=== PATIENT | male | born 1970 | race Caucasian/White ===

== ENCOUNTER 2018-05-16 08:01 | Inpatient (IN) | payer OTHER ==
[2018-05-16] MEDS ORDERED: LORazepam 2 MG/ML INJ IV STA (08:16)
[2018-05-16] MEDS ORDERED: SODIUM CHLORIDE 0.9% 1,000 ML IV ONE (08:28)
--- NOTE | 2018-05-16 08:28 | ED ---
General Adult HPI - General Stated complaint: ETOH withdrawal Time Seen by Provider: 05/16/18 08:01 Source: RN notes reviewed - History of Present Illness Initial comments: This is a 47 her old male who was originally seen at [facility]. They called to transfer the patient here for possible DVTs. Patient states he hasn't drank since yesterday and he was having some tingling to his face and also was having a difficult time standing so he called an ambulance. [facility] did a workup on him as well as a CAT scan of his brain all were negative except for a low magnesium which they started to replace prior to his arrival. Patient was also tachycardic at their facility. Patient received 2 mg of Ativan prior to leaving [facility]. Patient currently states he is feeling much better but still is shaking in his heart rate is still in excess 120. Patient denies any headache patient denies any numbness or weakness currently. Patient denies any chest pain or shortness of breath. Patient denies any recent fever chills. Patient denies any abdominal pain patient denies nausea vomiting diarrhea. Patient denies any injury or recent fall. - Related Data Home Medications Medication Instructions Recorded Confirmed Hydrochlorothiazide 25 mg PO HS 05/16/18 05/16/18 Lisinopril [Zestril] 20 mg PO DAILY 05/16/18 05/16/18 Multivitamins, Thera [Multivitamin 1 tab PO DAILY 05/16/18 05/16/18 (formulary)] Allergies Allergy/AdvReac Type Severity Reaction Status Date / Time No Known Allergies Allergy Verified 05/16/18 08:41 Review of Systems ROS Statement: Those systems with pertinent positive or pertinent negative responses have been documented in the HPI. ROS Other: All systems not noted in ROS Statement are negative. General Exam - General Exam Comments Initial Comments: GENERAL: Patient is well-developed and well-nourished. Patient is nontoxic and well- hydrated and is in mild distress. ENT: Neck is soft and supple. No significant lymphadenopathy is noted. Oropharynx is clear. Moist mucous membranes. Neck has full range of motion without eliciting any pain. EYES: The sclera were anicteric and conjunctiva were pink and moist. Extraocular movements were intact and pupils were equal round and reactive to light. Eyelids were unremarkable. PULMONARY: Unlabored respirations. Good breath sounds bilaterally. No audible rales rhonchi or wheezing was noted. CARDIOVASCULAR: Patient is tachycardic at about 130 beats a minute ABDOMEN: Soft and nontender with normal bowel sounds. No palpable organomegaly was noted. There is no palpable pulsatile mass. SKIN: Skin is clear with no lesions or rashes and otherwise unremarkable. NEUROLOGIC: Patient is alert and oriented x3. Cranial nerves II through XII are grossly intact. Motor and sensory are also intact. Normal speech, volume and content. Symmetrical smile. Patient is tremulous MUSCULOSKELETAL: Normal extremities with adequate strength and full range of motion. No lower extremity swelling or edema. No calf tenderness. LYMPHATICS: No significant lymphadenopathy is noted PSYCHIATRIC: Normal psychiatric evaluation. Course Vital Signs 05/16/18 05/16/18 05/16/18 08:23 08:48 09:39 Temperature 98.4 F Pulse Rate 136 H 125 H Respiratory 22 Rate Blood Pressure 171/100 152/84 O2 Sat by Pulse 98 Oximetry 05/16/18 10:01 Temperature Pulse Rate 121 H Respiratory 20 Rate Blood Pressure 138/78 O2 Sat by Pulse 98 Oximetry Medical Decision Making - Medical Decision Making EKG shows sinus tachycardia at 105 bpm VT interval 166 QRS is 84 QT interval 340 QTC is 449. EKG shows no ST segment elevation or depression or T wave abnormalities are noted. - Lab Data Result diagrams: 05/16/18 08:10 05/16/18 08:10 Lab Results 05/16/18 05/16/18 05/16/18 Range/Units 08:10 08:10 08:10 WBC (3.8-10.6) k/uL RBC (4.30-5.90) m/uL Hgb (13.0-17.5) gm/dL Hct (39.0-53.0) % MCV (80.0-100.0) fL MCH (25.0-35.0) pg MCHC (31.0-37.0) g/dL RDW (11.5-15.5) % Plt Count (150-450) k/uL Neutrophils % % Lymphocytes % % Monocytes % % Eosinophils % % Basophils % % Neutrophils # (1.3-7.7) k/uL Lymphocytes # (1.0-4.8) k/uL Monocytes # (0-1.0) k/uL Eosinophils # (0-0.7) k/uL Basophils # (0-0.2) k/uL Macrocytosis Sodium 134 L (137-145) mmol/L Potassium 4.0 (3.5-5.1) mmol/L Chloride 99 (98-107) mmol/L Carbon Dioxide 21 L (22-30) mmol/L Anion Gap 14 mmol/L BUN 17 (9-20) mg/dL Creatinine 0.73 (0.66-1.25) mg/dL Est GFR (CKD-EPI)AfAm >90 (>60 ml/min/1.73 sqM) Est GFR (CKD-EPI)NonAf >90 (>60 ml/min/1.73 sqM) Glucose 129 H (74-99) mg/dL Plasma Lactic Acid Bill 3.9 H* (0.7-2.0) mmol/L Calcium 9.0 (8.4-10.2) mg/dL Magnesium 1.7 (1.6-2.3) mg/dL Total Bilirubin 1.0 (0.2-1.3) mg/dL AST 119 H (17-59) U/L ALT 94 H (21-72) U/L Alkaline Phosphatase 129 H (38-126) U/L Troponin I 0.190 H* (0.000-0.034) ng/mL Total Protein 6.7 (6.3-8.2) g/dL Albumin 3.8 (3.5-5.0) g/dL 05/16/18 Range/Units 08:10 WBC 6.5 (3.8-10.6) k/uL RBC 3.66 L (4.30-5.90) m/uL Hgb 13.0 (13.0-17.5) gm/dL Hct 38.9 L (39.0-53.0) % MCV 106.2 H (80.0-100.0) fL MCH 35.4 H (25.0-35.0) pg MCHC 33.3 (31.0-37.0) g/dL RDW 13.1 (11.5-15.5) % Plt Count 131 L (150-450) k/uL Neutrophils % 76 % Lymphocytes % 11 % Monocytes % 9 % Eosinophils % 1 % Basophils % 1 % Neutrophils # 4.9 (1.3-7.7) k/uL Lymphocytes # 0.7 L (1.0-4.8) k/uL Monocytes # 0.6 (0-1.0) k/uL Eosinophils # 0.1 (0-0.7) k/uL Basophils # 0.0 (0-0.2) k/uL Macrocytosis Moderate Sodium (137-145) mmol/L Potassium (3.5-5.1) mmol/L Chloride (98-107) mmol/L Carbon Dioxide (22-30) mmol/L Anion Gap mmol/L BUN (9-20) mg/dL Creatinine (0.66-1.25) mg/dL Est GFR (CKD-EPI)AfAm (>60 ml/min/1.73 sqM) Est GFR (CKD-EPI)NonAf (>60 ml/min/1.73 sqM) Glucose (74-99) mg/dL Plasma Lactic Acid Bill (0.7-2.0) mmol/L Calcium (8.4-10.2) mg/dL Magnesium (1.6-2.3) mg/dL Total Bilirubin (0.2-1.3) mg/dL AST (17-59) U/L ALT (21-72) U/L Alkaline Phosphatase (38-126) U/L Troponin I (0.000-0.034) ng/mL Total Protein (6.3-8.2) g/dL Albumin (3.5-5.0) g/dL Disposition Clinical Impression: Alcohol withdrawal syndrome Disposition: ADMITTED IP TO THIS [facility] Time of Disposition: 10:13
[2018-05-16] MEDS ORDERED: THIAMINE 100 MG/ML 2 ML VIAL IM STA (08:29)
[2018-05-16] MEDS ORDERED: LORazepam 2 MG/ML INJ IV PRN (08:29)
[2018-05-16] MEDS: LORazepam 2 MG/ML INJ IV PRN ×5 (08:38→20:19)
[2018-05-16 08:43] LABS: Basophils % (A) 1 %; Eosinophils # (A) 0.1 k/uL (0-0.7); Eosinophils % (A) 1 %; HCT 38.9 % (39.0-53.0); Lymphocytes # (A) 0.7 k/uL (1.0-4.8); Lymphocytes % (A) 11 %; MCH 35.4 pg (25.0-35.0); MCHC 33.3 g/dL (31.0-37.0); MCV 106.2 fL (80.0-100.0); Macrocytosis Moderate; Mean Platelet Volume 7.1; Monocytes # (A) 0.6 k/uL (0-1.0); Monocytes % (A) 9 %; Neutrophils # (A) 4.9 k/uL (1.3-7.7); Neutrophils % (A) 76 %; Platelet Count 131 k/uL (150-450); RBC 3.66 m/uL (4.30-5.90); RDW 13.1 % (11.5-15.5); WBC 6.5 k/uL (3.8-10.6)
[2018-05-16] MEDS ORDERED: SODIUM CHLORIDE 0.9% 1,000 ML with MVI, ADULT NO.4 WITH VIT K 10 ML, THIAMINE 100 MG, F... IV ONE ×4 (08:45)
[2018-05-16 08:51] LABS: ALT 94 U/L (21-72); AST 119 U/L (17-59); Albumin 3.8 g/dL (3.5-5.0); Alkaline Phosphatase 129 U/L (38-126); Anion Gap 14 mmol/L; Blood Urea Nitrogen 17 mg/dL (9-20); Carbon Dioxide 21 mmol/L (22-30); Chloride 99 mmol/L (98-107); Glucose 129 mg/dL (74-99); Magnesium 1.7 mg/dL (1.6-2.3); Sodium 134 mmol/L (137-145); Total Protein 6.7 g/dL (6.3-8.2)
[2018-05-16] MEDS: NICOTINE 21MG/24HR PATCH TRANSDERM SCH (13:18)
--- NOTE | 2018-05-16 14:23 | P.HPIM ---
History of Present Illness this is a pleasant 47 years old male with past medical history of alcohol abuse , hypertension, hyperlipidemia. He follow-up with Dr. Bojorquez. he was a transfer from [facility] for alcohol withdrawal. Patient has history of alcohol abuse and he went into alcohol withdrawal last time about 9 months ago however he denies history of withdrawal seizure. 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 Patient also complains from chronic loses stool since August 2017, however over the last month and become more formed after a Telfa twice per day. Denies any blood in his stool. Patient also denies chest pain or dyspnea. No dizziness. currently no headache. No weakness in any part of his body for example limbs. No abnormal sensation or numbness, however at says at times he feels numbness in both feet and hands left more than right but not currently. No difficulty swallowing or blurred vision, patient examined for diplopia and was negative. He is smoker about 1 pack per day, consult and agrees to quit and is nicotine patch, compared to drinking around between appointment and 1 L every day. However he denies illicit to track use. Anteverted [facility] his labs showed sodium 132, creatinine 0.8, potassium 4.2, low magnesium 1.1, AST elevated at 110, ALT 84, lactic acid 4.1, lipase 98 Review of Systems CONSTITUTIONAL: No fever, no malaise, no fatigue. HEENT: No recent visual problems or hearing problems. Denied any sore throat. CARDIOVASCULAR: No orthopnea, PND, no palpitations, no syncope. PULMONARY: No shortness of breath, no cough, no hemoptysis. GASTROINTESTINAL: No diarrhea, no nausea, no vomiting, no abdominal pain. Normoactive bowel sounds. NEUROLOGICAL: No headaches, no weakness, no numbness. HEMATOLOGICAL: Denies any bleeding or petechiae. GENITOURINARY: Denies any burning micturition, frequency, or urgency. MUSCULOSKELETAL/RHEUMATOLOGICAL: Denies any joint pain, swelling, or any muscle pain. ENDOCRINE: Denies any polyuria or polydipsia. Past Medical History Past Medical History: Hyperlipidemia, Hypertension Additional Past Medical History / Comment(s): Alcohol Abuse, dental problems History of Any Multi-Drug Resistant Organisms: None Reported Past Surgical History: Hernia Repair Additional Past Surgical History / Comment(s): L inguinal hernia repair as infant. Past Anesthesia/Blood Transfusion Reactions: No Reported Reaction Smoking Status: Current every day smoker - Past Family History Father Family Medical History: Cancer Additional Family Medical History / Comment(s): Father recently diagnosed with throat cancer and will go to [place] [facility] for radiation starting 05/17/18. He is a nonsmoker. He is 72 yrs old. Mother Family Medical History: No Reported History Additional Family Medical History / Comment(s): Mother is healthy and 70yrs old. Medications and Allergies Home Medications Medication Instructions Recorded Confirmed Type Lisinopril [Zestril] 20 mg PO DAILY 05/16/18 05/16/18 History Multivitamins, Thera [Multivitamin 1 tab PO DAILY 05/16/18 05/16/18 History (formulary)] RX: Hydrochlorothiazide 25 mg PO HS 05/16/18 05/16/18 History Allergies Allergy/AdvReac Type Severity Reaction Status Date / Time No Known Allergies Allergy Verified 05/16/18 08:41 Physical Exam Vitals: Vital Signs Temp Pulse Pulse Resp BP BP Pulse Ox 05/16/18 10:40 112 H 05/16/18 10:38 98 F 112 H 16 142/76 97 05/16/18 10:01 121 H 20 138/78 98 05/16/18 09:39 125 H 05/16/18 08:48 152/84 05/16/18 08:23 98.4 F 136 H 22 171/100 98 Intake and Output 05/15/18 05/16/18 05/16/18 22:59 06:59 14:59 Intake Total 240 Balance 240 Intake: Oral 240 Other: # Voids 0 Weight 72 kg GENERAL: The patient is alert and oriented x3, not in any acute distress. Well developed, well nourished. -HEENT: Pupils are round and equally reacting to light. EOMI. No scleral icterus. No conjunctival pallor. Normocephalic, atraumatic. No pharyngeal erythema. No thyromegaly. dry mucous membranes CARDIOVASCULAR: S1 and S2 present. No murmurs, rubs, or gallops. PULMONARY: Chest is clear to auscultation, no wheezing or crackles. ABDOMEN: Soft, nontender, nondistended, normoactive bowel sounds. No palpable organomegaly. MUSCULOSKELETAL: No joint swelling or deformity. -EXTREMITIES: No cyanosis, clubbing, or pedal edema. bilateral hand tremor NEUROLOGICAL: Gross neurological examination did not reveal any focal deficits. SKIN: No rashes. Results CBC & Chem 7: 05/16/18 08:10 05/16/18 08:10 Labs: Abnormal Lab Results - Last 24 Hours (Table) 05/16/18 05/16/18 05/16/18 Range/Units 08:10 08:10 08:10 RBC (4.30-5.90) m/uL Hct (39.0-53.0) % MCV (80.0-100.0) fL MCH (25.0-35.0) pg Plt Count (150-450) k/uL Lymphocytes # (1.0-4.8) k/uL Sodium 134 L (137-145) mmol/L Carbon Dioxide 21 L (22-30) mmol/L Glucose 129 H (74-99) mg/dL Plasma Lactic Acid Bill 3.9 H* (0.7-2.0) mmol/L AST 119 H (17-59) U/L ALT 94 H (21-72) U/L Alkaline Phosphatase 129 H (38-126) U/L Troponin I 0.190 H* (0.000-0.034) ng/mL 05/16/18 Range/Units 08:10 RBC 3.66 L (4.30-5.90) m/uL Hct 38.9 L (39.0-53.0) % MCV 106.2 H (80.0-100.0) fL MCH 35.4 H (25.0-35.0) pg Plt Count 131 L (150-450) k/uL Lymphocytes # 0.7 L (1.0-4.8) k/uL Sodium (137-145) mmol/L Carbon Dioxide (22-30) mmol/L Glucose (74-99) mg/dL Plasma Lactic Acid Bill (0.7-2.0) mmol/L AST (17-59) U/L ALT (21-72) U/L Alkaline Phosphatase (38-126) U/L Troponin I (0.000-0.034) ng/mL Thrombosis Risk Factor Assmnt - Choose All That Apply Any of the Below Risk Factors Present?: Yes Each Factor Represents 1 point: Age 41-60 years Other Risk Factors: Yes Other congenital or acquired thrombophilia - If yes, enter type in comment: No Thrombosis Risk Factor Assessment Total Risk Factor Score: 1 Thrombosis Risk Factor Assessment Level: Low Risk Assessment and Plan Assessment: alcohol withdrawal, monitor for delirium tremens Alcohol abuse Elevated troponins dehydration Current smoker elevated lactic acid Electrolyte abnormalities Hypertension, essential Plan: this is a pleasant 48 years old male who presents because of. We'll withdrawal. Patient started on banana bag, IV hydration. Continue with CIWA protocol.monitor lytes and vitals. resume home medication. Hold diuretic. Serial troponins, EKG shows sinus tachycardia. Call cardiology consult for evaluation.echocardiogram.start patient on aspirin, Baby does. follow-up lactic acid and electrolytes and vitals. Telemetry. Psychiatric evaluation. GI and DVT prophylaxis. Further recommendation is based on the clinical course of the patient DVT Prophylaxis: Subcutaneous heparin GI prophylaxis: Pepcid PT/OT: Pending Prognosis is guarded discussed with staff
[2018-05-16] MEDS: HEPARIN SODIUM,PORCINE 5,000 UNIT/ML 1 ML VIAL SQ SCH ×2 (14:42→20:20)
[2018-05-16] MEDS: FAMOTIDINE 20 MG/2 ML VIAL IV SCH ×2 (14:42→20:20)
[2018-05-16] MEDS: ASPIRIN 81 MG PO SCH (14:43)
[2018-05-16 15:47] LABS: Anion Gap 5 mmol/L; Blood Urea Nitrogen 17 mg/dL (9-20); Calcium 8.6 mg/dL (8.4-10.2); Carbon Dioxide 26 mmol/L (22-30); Chloride 103 mmol/L (98-107); Glucose 123 mg/dL (74-99); Magnesium 1.9 mg/dL (1.6-2.3); Potassium 3.9 mmol/L (3.5-5.1); Sodium 134 mmol/L (137-145)
[2018-05-16] MEDS: 1: MVI, ADULT NO.4 WITH VIT K 10 ML, THIAMINE 100 MG, FOLIC ACID 1 MG in SODIUM CHLORIDE IV SCH ×4 (15:51)
[2018-05-16] MEDS: THIAMINE 100 MG TAB PO SCH (17:19)
--- NOTE | 2018-05-16 18:08 | CONS ---
CONSULTATION DATE OF SERVICE: 05/16/2018. CHIEF COMPLAINT: Elevated troponin. HISTORY: Florentino is a 47-year-old gentleman with history of EtOH abuse, who was going to large alcohol withdrawal at home, came in because he felt somewhat dizzy and fell down onto the floor. He initially presented to [facility], from where he had been transferred to [facility]. There is no history of seizures. There is no history of chest pain, shortness of breath, paroxysmal nocturnal dyspnea or orthopnea. PAST MEDICAL HISTORY: Significant for hypertension. CURRENT MEDICATIONS: 1. Zestril 20 daily. 2. Hydrochlorothiazide 25 daily. FAMILY HISTORY: Negative for premature coronary artery disease. SOCIAL HISTORY: Negative for smoking or history of drug abuse. Significant for EtOH abuse. REVIEW OF SYSTEMS: HEENT: Significant for episodes of blurred vision and headache. CARDIAC: As described above. RESPIRATORY: Negative. GI: Negative. : Negative. MUSCULOSKELETAL: Negative. ENDOCRINE: Negative. ONCOLOGICAL: Negative. DERM: Negative. CONSTITUTIONAL: Negative. PSYCH: Significant for alcohol abuse and alcohol withdrawal. EXAM: He appears comfortable at rest. VITAL SIGNS: Heart rate is 105 beats per minute, blood pressure is 130/80, respiratory rate is 18, O2 sat is 97% on room air. NECK: There is no jugular venous distention. Carotid upstroke is normal. There is no bruit. CHEST: Chest exam reveals good air entry bilaterally. HEART: First and second heart sounds. No gallop. No murmur. No rub. ABDOMEN: Soft, nontender. EXTREMITIES: Did not reveal any edema. Peripheral pulses are felt. LABS: Lactic acid was initially elevated, subsequently it came back down to 1.2, creatinine is 0.89. Hemoglobin is normal. Troponin mildly elevated at 0.1 and 0.3. EKG shows sinus tachycardia. ASSESSMENT: 1. Troponin elevation. 2. EtOH abuse with alcohol withdrawal. PLAN: The exact etiology for troponin elevation is unclear. The patient's clinical presentation is not consistent with a diagnosis of acute myocardial ischemia. It could be related to alcohol withdrawal. I will obtain a 2D echo to assess LV function and wall motion. If that appears normal. He does not require further workup at this time. We may consider an outpatient stress test at a later date. MMODL / IJN: [id number] /
--- NOTE | 2018-05-16 18:25 | ECHOF ---
Referral Reason:Rule out heart disease MEASUREMENTS -------- HEIGHT: 172.7 cm WEIGHT: 71.7 kg BP: 142/76 RVIDd: 2.7 cm (< 3.3) IVSd: 0.9 cm (0.6 - 1.1) LVIDd: 5.2 cm (3.9 - 5.3) LVPWd: 1.1 cm (0.6 - 1.1) IVSs: 1.6 cm LVIDs: 3.8 cm LVPWs: 1.6 cm LA Diam: 3.6 cm (2.7 - 3.8) LAESV Index (A-L): 26.82 ml/m Ao Diam: 3.0 cm (2.0 - 3.7) AV Cusp: 2.5 cm (1.5 - 2.6) EPSS: 1.0 cm MV E Joe: 1.16 m/s MV DecT: 81 ms MV A Joe: 1.06 m/s MV E/A Ratio: 1.10 RAP: 5.00 mmHg RVSP: 37.19 mmHg MV EF SLOPE: 138.45 mm/s (70 - 150) MV EXCURSION: 1.72 cm (> 18.000) FINDINGS -------- Sinus rhythm. Resting tachycardia (HR>100bpm). This was a technically good study. The left ventricular size is normal. There is borderline concentric left ventricular hypertrophy. Overall left ventricular systolic function is low-normal with, an EF between 50 - 55 %. The right ventricle is normal in size. Normal LA size by volume 22+/-6 ml/m2. The right atrium is normal in size. The aortic valve is trileaflet and appears structurally normal. The mitral valve leaflets are mildly thickened. Severe mitral regurgitation is present. Mild tricuspid regurgitation present. There is mild pulmonary hypertension. The right ventricular systolic pressure, as measured by Doppler, is 37.19mmHg. Trace/mild (physiologic) pulmonic regurgitation. The aortic root size is normal. Normal inferior vena cava with normal inspiratory collapse consistent with estimated right atrial pre ssure of 5 mmHg. There is no pericardial effusion. CONCLUSIONS -------- 1. Sinus rhythm. 2. Resting tachycardia (HR>100bpm). 3. This was a technically good study. 4. The left ventricular size is normal. 5. There is borderline concentric left ventricular hypertrophy. 6. Overall left ventricular systolic function is low-normal with, an EF between 50 - 55 %. 7. The right ventricle is normal in size. 8. Normal LA size by volume 22+/-6 ml/m2. 9. The aortic valve is trileaflet and appears structurally normal. 10. The mitral valve leaflets are mildly thickened. 11. Severe mitral regurgitation is present. 12. Mild tricuspid regurgitation present. 13. There is mild pulmonary hypertension. 14. Trace/mild (physiologic) pulmonic regurgitation. 15. The aortic root size is normal. 16. Normal inferior vena cava with normal inspiratory collapse consistent with estimated right atrial pressure of 5 mmHg. 17. There is no pericardial effusion. TANDEM OPERATOR: ARIANNA Vázquez
[2018-05-17] MEDS: LORazepam 2 MG/ML INJ IV PRN ×2 (00:36→20:10)
[2018-05-17] MEDS: 1: MVI, ADULT NO.4 WITH VIT K 10 ML, THIAMINE 100 MG, FOLIC ACID 1 MG in SODIUM CHLORIDE IV SCH ×12 (01:46→21:53)
[2018-05-17 07:31] LABS: Basophils % (A) 1 %; Eosinophils # (A) 0.1 k/uL (0-0.7); Eosinophils % (A) 3 %; HCT 37.8 % (39.0-53.0); HGB 12.4 gm/dL (13.0-17.5); Lymphocytes # (A) 0.9 k/uL (1.0-4.8); Lymphocytes % (A) 22 %; MCH 34.9 pg (25.0-35.0); MCHC 32.8 g/dL (31.0-37.0); MCV 106.5 fL (80.0-100.0); Macrocytosis Moderate; Mean Platelet Volume 8.1; Monocytes # (A) 0.3 k/uL (0-1.0); Monocytes % (A) 7 %; Neutrophils # (A) 2.7 k/uL (1.3-7.7); Neutrophils % (A) 65 %; Platelet Count 122 k/uL (150-450); RBC 3.55 m/uL (4.30-5.90); RDW 12.5 % (11.5-15.5); WBC 4.1 k/uL (3.8-10.6)
[2018-05-17 07:44] LABS: ALT 81 U/L (21-72); AST 109 U/L (17-59); Albumin 3.5 g/dL (3.5-5.0); Alkaline Phosphatase 118 U/L (38-126); Anion Gap 9 mmol/L; Blood Urea Nitrogen 11 mg/dL (9-20); Calcium 9.1 mg/dL (8.4-10.2); Carbon Dioxide 24 mmol/L (22-30); Chloride 105 mmol/L (98-107); Glucose 97 mg/dL (74-99); Potassium 3.9 mmol/L (3.5-5.1); Sodium 138 mmol/L (137-145); Total Bilirubin 0.9 mg/dL (0.2-1.3); Total Protein 6.1 g/dL (6.3-8.2)
[2018-05-17] MEDS: NICOTINE 21MG/24HR PATCH TRANSDERM SCH (09:13)
[2018-05-17] MEDS: HEPARIN SODIUM,PORCINE 5,000 UNIT/ML 1 ML VIAL SQ SCH ×2 (09:13→20:11)
[2018-05-17] MEDS: ASPIRIN 81 MG PO SCH (09:13)
[2018-05-17] MEDS: FAMOTIDINE 20 MG/2 ML VIAL IV SCH (09:18)
[2018-05-17 10:36] VITALS: BMI 24.3
--- NOTE | 2018-05-17 12:24 | P.PN ---
Subjective Progress Note Date: 05/17/18 This is a 47-year-old gentleman with history of EtOH abuse presented to the hospital after experiencing a fall at home. No history of seizures, patient denies any chest pain, shortness of breath, he does have history of hypertension. Patient was seen in consultation yesterday by Dr. Marquez, appears to be going through some DVTs and is quite shaky. Having significant tremors, he states that it makes him unable to walk appropriately because she shaking so bad. Etiology was initially consulted to see the patient because of abnormal troponins. Echocardiogram with Doppler study was performed which revealed a normal left ventricular systolic function. Troponin 0.19, 0.3, 0.3. Objective - Vital Signs Vital signs: Vital Signs Temp 97.9 F 05/17/18 08:00 Pulse 108 H 05/17/18 08:00 Resp 18 05/17/18 08:00 BP 150/101 05/17/18 08:00 Pulse Ox 100 05/17/18 08:00 Intake & Output 05/16/18 05/17/18 05/17/18 18:59 06:59 18:59 Intake Total 480 720 240 Output Total 400 1000 Balance 480 320 -760 Weight 72 kg 72.5 kg 72.5 kg Intake: Intake, IV Titration 600 Amount Mvi, Adult No.4 with Vit 200 K 10 ml Thiamine 100 mg Folic Acid 1 mg In Sodium Chloride 0.9% 1,000 ml @ 100 mls/hr IV .BY DURATION LALITA Rx#: [id number] Sodium Chloride 0.9% 1, 400 000 ml @ 100 mls/hr IV . BY DURATION LALITA Rx#: [id number] Oral 480 120 240 Output: Urine 400 1000 Other: # Voids 1 1 # Bowel Movements 0 - Exam PHYSICAL EXAMINATION: GENERAL: 47-year-old gentleman in no acute distress at the time of my examination HEENT: Head is atraumatic, normocephalic. Pupils equal, round. Sclera anicteric. Conjunctiva are clear. Mucous membranes of the mouth are moist. Neck is supple. There is no elevated jugular venous pressure. No carotid bruit is heard. HEART EXAMINATION: Heart S1, S2 normal. No murmur or gallop heard. CHEST EXAMINATION: Lungs are clear to auscultation and precussion. No chest wall tenderness is noted on palpation or with deep breathing. ABDOMEN: Soft, nontender. Bowel sounds are heard. No organomegaly noted. EXTREMITIES: 2+ peripheral pulses with no evidence of peripheral edema and no calf tenderness noted. NEUROLOGIC patient is awake, alert and oriented X3, he is experiencing tremors. . - Labs CBC & Chem 7: 05/17/18 07:01 05/17/18 07:01 Labs: Abnormal Lab Results - Last 24 Hours (Table) 05/16/18 05/16/18 05/16/18 Range/Units 14:10 15:19 20:13 RBC (4.30-5.90) m/uL Hgb (13.0-17.5) gm/dL Hct (39.0-53.0) % MCV (80.0-100.0) fL Plt Count (150-450) k/uL Lymphocytes # (1.0-4.8) k/uL Sodium 134 L (137-145) mmol/L Glucose 123 H (74-99) mg/dL AST (17-59) U/L ALT (21-72) U/L Troponin I 0.341 H* 0.320 H* (0.000-0.034) ng/mL Total Protein (6.3-8.2) g/dL 05/17/18 05/17/18 Range/Units 07:01 07:01 RBC 3.55 L (4.30-5.90) m/uL Hgb 12.4 L (13.0-17.5) gm/dL Hct 37.8 L (39.0-53.0) % MCV 106.5 H (80.0-100.0) fL Plt Count 122 L (150-450) k/uL Lymphocytes # 0.9 L (1.0-4.8) k/uL Sodium (137-145) mmol/L Glucose (74-99) mg/dL AST 109 H (17-59) U/L ALT 81 H (21-72) U/L Troponin I (0.000-0.034) ng/mL Total Protein 6.1 L (6.3-8.2) g/dL Assessment and Plan Plan: Assessment and plan #1 alcohol withdrawal with significant tremors this morning #2 history of alcohol abuse #3 nicotine dependence #4 abnormal lactic acid #5 hypertension #6 abnormal troponins, likely secondary to EtOH withdrawal, echo shows normal left ventricular systolic function. From cardiology's perspective, we'll follow this patient along with you now on an as-needed basis only, we will make an outpatient appointment in the office and schedule outpatient stress testing down the road. DNP note has been reviewed, I agree with a documented findings and plan of care. Patient was seen and examined.
[2018-05-17] MEDS: THIAMINE 100 MG TAB PO SCH ×2 (12:40→17:39)
[2018-05-17] MEDS: LISINOPRIL 20 MG TAB PO SCH (12:40)
--- NOTE | 2018-05-17 14:37 | P.PN ---
Subjective Progress Note Date: 05/17/18 Progress note being dictated for Dr. Cabrales Interval history:this is a pleasant 47 years old male with past medical history of alcohol abuse, hypertension, hyperlipidemia. He follow-up with Dr. Bojorquez. he was a transfer from [facility] for alcohol withdrawal. Patient has history of alcohol abuse and he went into alcohol withdrawal last time about 9 months ago however he denies history of withdrawal seizure. 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 Patient also complains from chronic loses stool since August 2017 , however over the last month and become more formed after a Telfa twice per day. Denies any blood in his stool. Patient also denies chest pain or dyspnea. No dizziness. currently no headache. No weakness in any part of his body for example limbs. No abnormal sensation or numbness, however at says at times he feels numbness in both feet and hands left more than right but not currently. No difficulty swallowing or blurred vision, patient examined for diplopia and was negative. He is smoker about 1 pack per day, consult and agrees to quit and is nicotine patch, compared to drinking around between appointment and 1 L every day. However he denies illicit to track use. Anteverted [facility] his labs showed sodium 132, creatinine 0.8, potassium 4.2, low magnesium 1.1, AST elevated at 110, ALT 84, lactic acid 4.1, lipase 98 Review of Systems CONSTITUTIONAL: No fever, no malaise, no fatigue. HEENT: No recent visual problems or hearing problems. Denied any sore throat. CARDIOVASCULAR: No orthopnea, PND, no palpitations, no syncope. PULMONARY: No shortness of breath, no cough, no hemoptysis. GASTROINTESTINAL: No diarrhea, no nausea, no vomiting, no abdominal pain. Normoactive bowel sounds. NEUROLOGICAL: No headaches, no weakness, no numbness. HEMATOLOGICAL: Denies any bleeding or petechiae. GENITOURINARY: Denies any burning micturition, frequency, or urgency. MUSCULOSKELETAL/RHEUMATOLOGICAL: Denies any joint pain, swelling, or any muscle pain. ENDOCRINE: Denies any polyuria or polydipsia. 05/17/2018 maintained on CIWA protocol, currently scoring a "9" on CIWa scale. Required a total of 2 mg of Ativan overnight. Shaky, improving. Ambulating without difficulty. Good diet intake with no nausea or vomiting. Denies chest pain, palpitations or increasing shortness of breath. Denies focal deficits, lightheadedness or dizziness. LFTs improving. Troponins 0.341, 0.320, evaluated by cardiology. Echo reporting normal LV function. Objective - Vital Signs Vital signs: Vital Signs Temp 97.9 F 05/17/18 08:00 Pulse 108 H 05/17/18 08:00 Resp 18 05/17/18 08:00 BP 150/101 05/17/18 08:00 Pulse Ox 100 05/17/18 08:00 Intake & Output 05/16/18 05/17/18 05/17/18 18:59 06:59 18:59 Intake Total 480 720 240 Output Total 400 1000 Balance 480 320 -760 Weight 72 kg 72.5 kg 72.5 kg Intake: Intake, IV Titration 600 Amount Mvi, Adult No.4 with Vit 200 K 10 ml Thiamine 100 mg Folic Acid 1 mg In Sodium Chloride 0.9% 1,000 ml @ 100 mls/hr IV .BY DURATION LALITA Rx#: [id number] Sodium Chloride 0.9% 1, 400 000 ml @ 100 mls/hr IV . BY DURATION LALITA Rx#: [id number] Oral 480 120 240 Output: Urine 400 1000 Other: # Voids 1 1 # Bowel Movements 0 - Exam GENERAL: The patient is alert and oriented x3, not in any acute distress. Well developed, well nourished. -HEENT: Pupils are round and equally reacting to light. EOMI. No scleral icterus. No conjunctival pallor. Normocephalic, atraumatic. No pharyngeal erythema. No thyromegaly. Oral mucous membranes moist CARDIOVASCULAR: S1 and S2 present. No murmurs, rubs, or gallops. PULMONARY: Chest is clear to auscultation, no wheezing or crackles. ABDOMEN: Soft, nontender, nondistended, normoactive bowel sounds. No palpable organomegaly. MUSCULOSKELETAL: No joint swelling or deformity. -EXTREMITIES: No cyanosis, clubbing, or pedal edema. bilateral hand tremor NEUROLOGICAL: Gross neurological examination did not reveal any focal deficits. Fine tremors SKIN: No rashes. - Labs CBC & Chem 7: 05/17/18 07:01 05/17/18 07:01 Labs: Abnormal Lab Results - Last 24 Hours (Table) 05/16/18 05/16/18 05/16/18 Range/Units 14:10 15:19 20:13 RBC (4.30-5.90) m/uL Hgb (13.0-17.5) gm/dL Hct (39.0-53.0) % MCV (80.0-100.0) fL Plt Count (150-450) k/uL Lymphocytes # (1.0-4.8) k/uL Sodium 134 L (137-145) mmol/L Glucose 123 H (74-99) mg/dL AST (17-59) U/L ALT (21-72) U/L Troponin I 0.341 H* 0.320 H* (0.000-0.034) ng/mL Total Protein (6.3-8.2) g/dL 05/17/18 05/17/18 Range/Units 07:01 07:01 RBC 3.55 L (4.30-5.90) m/uL Hgb 12.4 L (13.0-17.5) gm/dL Hct 37.8 L (39.0-53.0) % MCV 106.5 H (80.0-100.0) fL Plt Count 122 L (150-450) k/uL Lymphocytes # 0.9 L (1.0-4.8) k/uL Sodium (137-145) mmol/L Glucose (74-99) mg/dL AST 109 H (17-59) U/L ALT 81 H (21-72) U/L Troponin I (0.000-0.034) ng/mL Total Protein 6.1 L (6.3-8.2) g/dL Assessment and Plan Assessment: alcohol withdrawal, monitor for delirium tremens Alcohol abuse Elevated troponins, secondary to EtOH withdrawal as per cardiology. Further outpatient stress test advised. dehydration Current smoker elevated lactic acid Electrolyte abnormalities Hypertension, essential Plan: Continue on current medication regime ,monitoring and symptomatic treatment. Maintain [facility] protocol. PT/OT. Transfer to [facility] unit with remote telemetry. Psychiatry consult in place with recommendations pending. Discharge planning in progress for the next 24-48 hours, pending continued improvement. The impression and plan of care has been dictated as directed. : I performed a history and examination of this patient, discussed the same with the dictator. I agree with the dictator's note ,documented as a scribe. Any additional findings or plans will be noted.
[2018-05-17] MEDS: FAMOTIDINE 20 MG TAB PO SCH (20:12)
[2018-05-18] MEDS: LORazepam 2 MG/ML INJ IV PRN ×2 (00:36→11:14)
[2018-05-18 06:32] LABS: Basophils % (A) 1 %; Eosinophils # (A) 0.1 k/uL (0-0.7); Eosinophils % (A) 3 %; HCT 33.4 % (39.0-53.0); Lymphocytes # (A) 0.7 k/uL (1.0-4.8); Lymphocytes % (A) 21 %; MCH 35.2 pg (25.0-35.0); MCHC 32.9 g/dL (31.0-37.0); MCV 106.8 fL (80.0-100.0); Macrocytosis Moderate; Mean Platelet Volume 8.4; Monocytes # (A) 0.3 k/uL (0-1.0); Monocytes % (A) 9 %; Neutrophils # (A) 2.2 k/uL (1.3-7.7); Neutrophils % (A) 63 %; Platelet Count 108 k/uL (150-450); RBC 3.12 m/uL (4.30-5.90); RDW 12.8 % (11.5-15.5); WBC 3.4 k/uL (3.8-10.6)
[2018-05-18] MEDS: 1: MVI, ADULT NO.4 WITH VIT K 10 ML, THIAMINE 100 MG, FOLIC ACID 1 MG in SODIUM CHLORIDE IV SCH ×4 (06:41)
[2018-05-18 07:20] LABS: ALT 74 U/L (21-72); AST 101 U/L (17-59); Albumin 3.2 g/dL (3.5-5.0); Alkaline Phosphatase 101 U/L (38-126); Anion Gap 6 mmol/L; Blood Urea Nitrogen 10 mg/dL (9-20); Calcium 9.1 mg/dL (8.4-10.2); Carbon Dioxide 24 mmol/L (22-30); Chloride 108 mmol/L (98-107); Glucose 84 mg/dL (74-99); Potassium 4.8 mmol/L (3.5-5.1); Sodium 138 mmol/L (137-145); Total Bilirubin 0.7 mg/dL (0.2-1.3); Total Protein 5.7 g/dL (6.3-8.2)
[2018-05-18] MEDS: NICOTINE 21MG/24HR PATCH TRANSDERM SCH (08:09)
[2018-05-18] MEDS: LISINOPRIL 20 MG TAB PO SCH (08:09)
[2018-05-18] MEDS: FAMOTIDINE 20 MG TAB PO SCH (08:09)
[2018-05-18] MEDS: HEPARIN SODIUM,PORCINE 5,000 UNIT/ML 1 ML VIAL SQ SCH (08:09)
[2018-05-18] MEDS: ASPIRIN 81 MG PO SCH (08:09)
--- NOTE | 2018-05-18 11:09 | P.PN ---
Subjective Progress Note Date: 05/18/18 This is a 47-year-old gentleman with history of EtOH abuse presented to the hospital after experiencing a fall at home. No history of seizures, patient denies any chest pain, shortness of breath, he does have history of hypertension. Patient was seen in consultation yesterday by Dr. Marquez, appears to be going through some DVTs and is quite shaky. Having significant tremors, he states that it makes him unable to walk appropriately because she shaking so bad. Etiology was initially consulted to see the patient because of abnormal troponins. Echocardiogram with Doppler study was performed which revealed a normal left ventricular systolic function. Troponin 0.19, 0.3, 0.3. 05/18/2018 Patient seen and examined this morning, hemodynamically stable, blood pressure 124/80 with a heart rate in the 80s, 98% on room air. White blood cell count 3.4, hemoglobin 11, platelet count 108. Sodium 138, potassium 4.8, BUN 10, creatinine 0.8. Denies any chest discomfort, breathing is stable. Objective - Vital Signs Vital signs: Vital Signs Temp 98.0 F 05/18/18 08:00 Pulse 89 05/18/18 08:00 Resp 16 05/18/18 08:00 BP 125/80 05/18/18 08:00 Pulse Ox 98 05/18/18 08:00 Intake & Output 05/17/18 05/18/18 05/18/18 18:59 06:59 18:59 Intake Total 1713.2 980 240 Output Total 1000 Balance 713.2 980 240 Weight 72.5 kg 72.7 kg Intake: Intake, IV Titration 1011.2 800 Amount Mvi, Adult No.4 with Vit 1011.2 K 10 ml Thiamine 100 mg Folic Acid 1 mg In Sodium Chloride 0.9% 1,000 ml @ 100 mls/hr IV .BY DURATION LALITA Rx#: [id number] Sodium Chloride 0.9% 1, 800 000 ml @ 100 mls/hr IV . BY DURATION LALITA Rx#: [id number] Oral 702 180 240 Output: Urine 1000 Other: # Voids 2 1 # Bowel Movements 0 0 - Exam PHYSICAL EXAMINATION: GENERAL: 47-year-old gentleman in no acute distress at the time of my examination HEENT: Head is atraumatic, normocephalic. Pupils equal, round. Sclera anicteric. Conjunctiva are clear. Mucous membranes of the mouth are moist. Neck is supple. There is no elevated jugular venous pressure. No carotid bruit is heard. HEART EXAMINATION: Heart S1, S2 normal. No murmur or gallop heard. CHEST EXAMINATION: Lungs are clear to auscultation and precussion. No chest wall tenderness is noted on palpation or with deep breathing. ABDOMEN: Soft, nontender. Bowel sounds are heard. No organomegaly noted. EXTREMITIES: 2+ peripheral pulses with no evidence of peripheral edema and no calf tenderness noted. NEUROLOGIC patient is awake, alert and oriented X3, he is experiencing tremors. . - Labs CBC & Chem 7: 05/18/18 06:07 05/18/18 06:07 Labs: Abnormal Lab Results - Last 24 Hours (Table) 05/18/18 05/18/18 Range/Units 06:07 06:07 WBC 3.4 L (3.8-10.6) k/uL RBC 3.12 L (4.30-5.90) m/uL Hgb 11.0 L (13.0-17.5) gm/dL Hct 33.4 L (39.0-53.0) % MCV 106.8 H (80.0-100.0) fL MCH 35.2 H (25.0-35.0) pg Plt Count 108 L (150-450) k/uL Lymphocytes # 0.7 L (1.0-4.8) k/uL Chloride 108 H (98-107) mmol/L AST 101 H (17-59) U/L ALT 74 H (21-72) U/L Total Protein 5.7 L (6.3-8.2) g/dL Albumin 3.2 L (3.5-5.0) g/dL Assessment and Plan Plan: Assessment and plan #1 alcohol withdrawal with significant tremors this morning #2 history of alcohol abuse #3 nicotine dependence #4 abnormal lactic acid #5 hypertension #6 abnormal troponins, likely secondary to EtOH withdrawal, echo shows normal left ventricular systolic function. \ From cardiology's perspective, we'll follow this patient along with you now on an as-needed basis only, we will make an outpatient appointment in the office and schedule outpatient stress testing down the road. DNP note has been reviewed, I agree with a documented findings and plan of care. Patient was seen and examined.
[2018-05-18] MEDS: THIAMINE 100 MG TAB PO SCH ×2 (11:14→17:30)
[2018-05-18 12:51] VITALS: RESP 18
[2018-05-18] MEDS ORDERED: METOPROLOL TARTRATE 25 MG TAB PO SCH (14:09)
--- NOTE | 2018-05-18 15:55 | P.DS ---
Providers Date of admission: 05/17/18 13:26 Expected date of discharge: 05/18/18 Attending physician: MD Dr. Keron Esquivel Consults: 05/16/18 14:01 Consult Physician Routine Consulting Provider: David Marquez Consult Reason/Comments: elevated troponin Do you want consulting provider notified?: Yes, Notify in am 05/16/18 15:23 Consult Physician Routine Consulting Provider: Mark Mathews Consult Reason/Comments: DTs Do you want consulting provider notified?: Yes [facility] Course: Final Diagnosis: alcohol withdrawal, monitor for delirium tremens, improved. Alcohol abuse Elevated troponins, secondary to EtOH withdrawal as per cardiology. Further outpatient stress test advised. dehydration Current smoker elevated lactic acid Electrolyte abnormalities Hypertension, essential Hospital course:this is a pleasant 47 years old male with past medical history of alcohol abuse, hypertension, hyperlipidemia. He follow-up with Dr. Bojorquez. he was a transfer from [facility] for alcohol withdrawal. Patient has history of alcohol abuse and he went into alcohol withdrawal last time about 9 months ago however he denies history of withdrawal seizure. 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 Patient also complains from chronic loses stool since August 2017 , however over the last month and become more formed after a Telfa twice per day. Denies any blood in his stool. Patient also denies chest pain or dyspnea. No dizziness. currently no headache. No weakness in any part of his body for example limbs. No abnormal sensation or numbness, however at says at times he feels numbness in both feet and hands left more than right but not currently. No difficulty swallowing or blurred vision, patient examined for diplopia and was negative. He is smoker about 1 pack per day, consult and agrees to quit and is nicotine patch, compared to drinking around between appointment and 1 L every day. However he denies illicit to track use. Anteverted [facility] his labs showed sodium 132, creatinine 0.8, potassium 4.2, low magnesium 1.1, AST elevated at 110, ALT 84, lactic acid 4.1, lipase 98 Maintained on CIWA protocol, currently scoring a "9" on CIWa scale. Required a total of 2 mg of Ativan overnight. Shaky, improving. Ambulating without difficulty. Good diet intake with no nausea or vomiting. Denies chest pain, palpitations or increasing shortness of breath. Denies focal deficits, lightheadedness or dizziness. LFTs improving. Troponins 0.341, 0.320, evaluated by cardiology. Echo reporting normal LV function. Cleared by cardiology for discharge. Significant clinical improvement. Patient is being discharged home in a stable condition with guarded prognosis. - Exam GENERAL: The patient is alert and oriented x3, no acute distress. CARDIOVASCULAR: S1 and S2 present. No murmurs, rubs, or gallops. PULMONARY: Chest is clear to auscultation, no wheezing or crackles. ABDOMEN: Soft, nontender, nondistended, normoactive bowel sounds. No palpable organomegaly. NEUROLOGICAL: Gross neurological examination did not reveal any focal deficits. Fine tremors The impression and plan of care has been dictated as directed. : I performed a history and examination of this patient, discussed the same with the dictator. I agree with the dictator's note ,documented as a scribe. Any additional findings or plans will be noted. Time taken: 35 minutes Patient Condition at Discharge: Stable Plan - Discharge Summary Discharge Rx Participant: No New Discharge Prescriptions: New Famotidine [Pepcid] 20 mg PO Q12HR tab Folic Acid 1 mg PO DAILY #30 tablet Metoprolol Tartrate [Lopressor] 25 mg PO BID #60 tab Nicotine 21Mg/24Hr Patch [Habitrol] 1 patch TRANSDERM DAILY #30 patch Thiamine [Vitamin B-1] 100 mg PO DAILY #30 tab Magnesium Oxide [Mag-Ox] 400 mg PO BID #30 tablet LORazepam [Ativan] 1 mg PO TID PRN 3 Days #9 tab PRN Reason: Anxiety Continue Multivitamins, Thera [Multivitamin (formulary)] 1 tab PO DAILY Lisinopril [Zestril] 20 mg PO DAILY Discontinued Hydrochlorothiazide 25 mg PO HS Discharge Medication List Lisinopril [Zestril] 20 mg PO DAILY 05/16/18 [History] Multivitamins, Thera [Multivitamin (formulary)] 1 tab PO DAILY 05/16/18 [History ] Famotidine [Pepcid] 20 mg PO Q12HR tab 05/18/18 [Rx] Folic Acid 1 mg PO DAILY #30 tablet 05/18/18 [Rx] LORazepam [Ativan] 1 mg PO TID PRN 3 Days #9 tab 05/18/18 [Rx] Magnesium Oxide [Mag-Ox] 400 mg PO BID #30 tablet 05/18/18 [Rx] Metoprolol Tartrate [Lopressor] 25 mg PO BID #60 tab 05/18/18 [Rx] Nicotine 21Mg/24Hr Patch [Habitrol] 1 patch TRANSDERM DAILY #30 patch 05/18/18 [ Rx] Thiamine [Vitamin B-1] 100 mg PO DAILY #30 tab 05/18/18 [Rx] Follow up Appointment(s)/Referral(s): David Marquez MD [STAFF PHYSICIAN] - 06/01/18 4:00 pm () Thang Bojorquez MD [Primary Care Provider] - 05/24/18 2:00 pm (Tuesday) Ambulatory/Diagnostic Orders: Complete Blood Count w/diff [LAB.AMB] Time Frame: 3 Days, Location: None Selected Activity/Diet/Wound Care/Special Instructions: No ETOH
[2018-05-18] MEDS: MAGNESIUM SULFATE-D5W PMX 1 GM in DEXTROSE/WATER 1 100ML.BAG IVPB SCH ×2 (15:58→17:23)
[2018-05-18 16:28] VITALS: BP 117/78; PULSE 83; TEMP 98.6
== END 2018-05-18 19:49 | disposition home or self-care (01) | DRG 897 ==
LOC: EC 08:01 → 6SEL 08:29 → OBSVTOIN 05-17 13:26
PROVIDERS: ADMIT Internal Medicine; ATTEND Internal Medicine
DX: F10.231 Alcohol dependence with withdrawal delirium (principal); E87.2 Acidosis; F17.210 Nicotine dependence, cigarettes, uncomplicated; E78.5 Hyperlipidemia, unspecified; E86.0 Dehydration; I10 Essential (primary) hypertension; W19.XXXA Unspecified fall, initial encounter; W18.30XA Fall on same level, unspecified, initial encounter; Y92.009 Unspecified place in unspecified non-institutional (private) residence as the place of occurrence of the external cause; Z80.8 Family history of malignant neoplasm of other organs or systems; R74.8 Abnormal levels of other serum enzymes; Z71.6 Tobacco abuse counseling
CPT/HCPCS: 36415; 80048; 80053; 83605; 83735; 84484; 85025; 93005; 93306; 96365; 96372; 96375; 99285